=== PATIENT | female | born 1990 | race African-American/Black ===

== ENCOUNTER 2019-10-04 00:01 | Outpatient (CLI) | payer OTHER ==
[2019-10-04 00:47] LABS: APPEARANCE,URINE CLEAR; BILIRUBIN,URINE NEGATIVE (NEGATIVE); COLOR,URINE STRAW; GLUCOSE, URINE NEGATIVE (NEGATIVE); KETONES,URINE NEGATIVE (NEGATIVE); LEUKOCYTE ESTERASE,URINE NEGATIVE (NEGATIVE); NITRITE,URINE NEGATIVE (NEGATIVE); PROTEIN,URINE NEGATIVE (NEGATIVE); URINE SPECIFIC GRAVITY 1.006; UROBILINOGEN,URINE NEGATIVE mg/dL (<2.0)
[2019-10-04 01:18] LABS: URINE AMPHETAMINES SCREEN NEGATIVE; URINE BARBITURATES SCREEN NEGATIVE; URINE BENZODIAZEPINES SCREEN NEGATIVE; URINE COCAINE SCREEN NEGATIVE; URINE MARIJUANA (THC) SCREEN NEGATIVE; URINE METHADONE SCREEN NEGATIVE; URINE PHENCYCLIDINE SCREEN NEGATIVE
[2019-10-04] MEDS ORDERED: HYDROXYZINE PAMOATE 50 MG CAPSULE PO ONE (01:31)
[2019-10-04] MEDS ORDERED: HYDROXYZINE PAMOATE 50 MG CAPSULE ONE (01:36)
--- NOTE | 2019-10-04 01:53 | Non Stress Test Report ---
Non Stress Test Datetime Report Generated by CPN: 10/04/2019 01:53 DEMOGRAPHIC EGA NST: 37.0 INDICATION Indication for Study (NST) Other: 37.0 IUP with CTXs MONITORING Monitor Explained: Monitor Explained; Test Explained; Patient Verbalized Understanding Time on Monitor: 10/04/2019 00:22 Time off Monitor: 10/04/2019 00:41 NST Duration: 19 NST INTERVENTIONS NST Interventions: PO Hydration Physician Notified NST: Dr. Alcala BABY A: [id number] BABY A Movement : Present Accelerations : 15X15 Decelerations : None Variability : Moderate 6-25bpm NST Review: Meets Criteria for Reactive NST NST Review and Verified By : A. [place] RN NST Results: Reactive NST REPORT Report Trigger: Send Report
== END 2019-10-04 01:51 | disposition home or self-care (01) ==
LOC: LC 00:01
PROVIDERS: ATTEND Obstetrics & Gynecology
DX: O47.1 False labor at or after 37 completed weeks of gestation (principal); Z3A.37 37 weeks gestation of pregnancy
CPT/HCPCS: 59025; 80307; 81001

== ENCOUNTER 2019-10-22 03:55 | Inpatient (IN) | payer OTHER ==
[2019-10-22] MEDS ORDERED: OXYTOCIN/0.9 % SODIUM CHLORIDE 30 UNIT/500 ML RTUINJ ONE (03:58)
[2019-10-22] MEDS ORDERED: OXYTOCIN 10 UNIT/ML VIAL ONE (03:58)
[2019-10-22] MEDS ORDERED: LIDOCAINE 1% INJ-PF (10 MG/ML) 30 ML SDV ONE (03:58)
[2019-10-22] MEDS ORDERED: MISOPROSTOL 0.2 MG TABLET ONE (03:58)
--- NOTE | 2019-10-22 04:47 | Admission Physical ---
Datetime Report Generated by CPN: 10/22/2019 04:46 CURRENT ADMISSION Chief Complaint: Other Chief Complaint Other: Delivered at home Admit Impression- Other: delivery Admit Plan: Observation/Evaluation ALLERGIES Medication Allergies: No Medication Allergies: No Known Allergies (10/04/2019) Latex: No Latex Allergies OBSTETRICAL HISTORY EDC: 10/25/2019 00:00 : 3 Para: 2 SEE RECORDS Alcohol: No Marijuana : No Cocaine: No Other Illicit Drugs: No Cigarettes: Never Smoker. [id number] PHYSICAL EXAM General: Normal HEENT: Normal Neurologic: Normal Thyroid: Normal Heart: Normal Lungs: Normal Breast: Deferred Back: Normal Abdomen: Normal Genitourinary Exam: Normal Extremities: Normal DTRs: Normal Pelvic Type: Adequate Vital Signs: Reviewed FETUS A EGA: 39.4 Monitoring: External US Presentation: Vertex Admit Comment: Pt delivered at home. PLANS FOR LABOR AND DELIVERY Labor and Delivery: None Pain Management: None Feeding Preference: Breast Benefit of Breast Feed Discussed: Yes Circumcision: No INFORMED CONSENT Signature: with User ID: [email or web address]
[2019-10-22] MEDS ORDERED: PROMETHAZINE HCL 25 MG SUPP.RECT PR PRN (04:51)
[2019-10-22] MEDS ORDERED: PROMETHAZINE HCL 25 MG TABLET PO PRN (04:51)
[2019-10-22] MEDS ORDERED: NA PHOS,M-B/NA PHOS,DI-BA (ADULT) 133 ML ENEMA PR PRN (04:51)
[2019-10-22] MEDS ORDERED: DIPH/PERTUSS(ACELL)/TETANUS VAC/PF 0.5 ML SYR (>=10YO) IM PRN (04:51)
[2019-10-22] MEDS ORDERED: PSEUDOEPHEDRINE HCL 30 MG TABLET PO PRN (04:51)
[2019-10-22] MEDS ORDERED: MEASLES,MUMPS&RUBELLA VACC/PF 0.5 ML VIAL SUBCUT PRN (04:51)
[2019-10-22] MEDS ORDERED: ACETAMINOPHEN 650 MG SUPP.RECT PR PRN (04:51)
[2019-10-22] MEDS ORDERED: DIBUCAINE 1% OINTMENT 28 GM TP PRN (04:51)
[2019-10-22] MEDS ORDERED: PROMETHAZINE HCL INJ 25 MG/1 ML VIAL IV PRN (04:51)
[2019-10-22] MEDS ORDERED: ZOLPIDEM TARTRATE 5 MG TABLET PO PRN (04:51)
[2019-10-22] MEDS ORDERED: DIPHENHYDRAMINE HCL 25 MG CAPSULE PO PRN (04:51)
[2019-10-22] MEDS ORDERED: GLYCERIN/WITCH HAZEL LEAF 1 EACH MED..WIPE TP PRN (04:51)
[2019-10-22] MEDS ORDERED: ACETAMINOPHEN WITH CODEINE #3 TABLET PO PRN ×2 (04:51)
[2019-10-22] MEDS ORDERED: BENZOCAINE/MENTHOL AEROSOL SPRAY 56 ML TOP PRN (04:51)
[2019-10-22] MEDS ORDERED: MAGNESIUM HYDROXIDE SUSP 30 ML UDCUP PO PRN (04:51)
--- NOTE | 2019-10-22 05:27 | Delivery Summary ---
Del Sum A-C Datetime Report Generated by CPN: 10/22/2019 05:27 DELIVERY PERSONNEL DELIVERY PERSONNEL: [id number] Delivery Doctor:: Gris Perrin MD Labor and Delivery Nurse:: Rose Arriola RNpulp mixer Nurse:: Neeru Wade RN Nursery Nurse:: Cadence Bains RN MATERNAL INFORMATION Delivery Anesthesia: None Medications After Delivery: Pitocin 10 Units IM Estimated Blood Loss (ml): 250 Maternal Complications: Precipitous Labor (<3hrs); Other Complication Details: Delivery at home LABOR SUMMARY EDC: 10/25/2019 00:00 No. Babies in Womb: 1 Attempted: No Labor Anesthesia: None LABOR INFORMATION Reason for Induction: Not Applicable Oxytocin: N/A Group B Beta Strep: positive Antibiotics # of Doses: 0 Steroids Given: None Reason Steroids Not Administered: Not Applicable MEMBRANES Membranes Rupture Method: Spontaneous Amniotic Fluid Color: Clear STAGES OF LABOR Stage 3 hr: 0 Stage 3 min: 38 VAGINAL DELIVERY Episiotomy: None Laceration #1: Perineal Laceration Extension #1: First Degree Laceration #2: None Laceration Extension #2: N/A Laceration #3: None Laceration Extension #3: N/A Laceration Repair: Yes Laceration Repair Note: Repair of small perineal laceration with one 3-0 chromic suture Sponge Count Correct: Vaginal Sweep Performed CSECTION DELIVERY Primary Indication: N/A Secondary Indication: N/A CSection Incidence: N/A Labor: N/A Elective: N/A CSection Incision: N/A BABY A INFORMATION Infant Delivery Date/Time: 10/22/2019 03:59 Method of Delivery: Vaginal Nurse Controlled Delivery: No Born in Route : Yes : N/A Forceps: N/A Vacuum Extraction: N/A Shoulder Dystocia : No PRESENTATION/POSITION BABY A Presentation: Cephalic Cephalic Presentation: Vertex PLACENTA INFORMATION BABY A Placenta Delivery Time : 10/22/2019 04:37 Placenta Method of Delivery: Spontaneous Placenta Status: Delivered INFANT INFORMATION BABY A Gestational Age at Delivery: 39.4 Gestational Status: Full Term- 39- 40.6 Weeks Infant Outcome : Liveborn Condition : Stable Infant Sex: Male IDENTIFICATION BABY A Verification Date/Time: 10/22/2019 04:13 ID Band Number: [id number] Mother's Name Verified: Yes Infant RN Verifying Infant: A. Flory RN Additional Verifying Personnel: Renetta Iyer RN WEIGHT/LENGTH BABY A Infant Birthweight (gm): 3506 Infant Weight (lb): 7 Weight (oz): 12 Infant Length (in): 19.50 Length (cm): 49.53 CORD INFORMATION BABY A No. Cord Vessels: 3 Cord Blood Taken: Yes-For Eval (Mom's Blood Type - or O+) ASSESSMENT BABY A Infant Complications: None Physical Findings at Delivery: Within Normal Limits Skin to Skin: Yes Transferred To: Remains with Mother BABY B INFORMATION : N/A SIGNATURES Signature: with User ID: [email or web address]
[2019-10-22 05:53] LABS: ABSOLUTE LYMPHOCYTES (AUTO) 1.2 10^3/uL (0.5-4.7); ABSOLUTE MONOCYTES (AUTO) 0.5 10^3/uL (0.1-1.4); ABSOLUTE NEUT (AUTO) 6.8 10^3/uL (1.7-8.2); BASOPHILS % (AUTO) 0.1 % (0-2); EOSINOPHILS % (AUTO) 0.6 % (0-6); HEMATOCRIT 39.1 % (36.0-47.0); HEMOGLOBIN 12.7 g/dL (12.0-15.5); LYMPHOCYTES % (AUTO) 13.7 % (13-45); MEAN CORPUSCULAR HEMOGLOBIN 26.5 pg (27.0-33.4); MEAN CORPUSCULAR HGB CONC 32.5 g/dL (32.0-36.0); MEAN CORPUSCULAR VOLUME 82 fl (80-97); MONOCYTES % (AUTO) 5.5 % (3-13); PLATELET COUNT 189 10^3/uL (150-450); RED CELL DISTRIBUTION WIDTH 16.8 % (11.5-14.0); SEGMENTED NEUTROPHILS % (AUTO) 80.1 % (42-78); TOTAL CELLS COUNTED % (AUTO) 100 %; WHITE BLOOD COUNT 8.5 10^3/uL (4.0-10.5)
[2019-10-22 06:27] LABS: APPEARANCE,URINE SLIGHTLY-CLOUDY; BILIRUBIN,URINE NEGATIVE (NEGATIVE); COLOR,URINE YELLOW; GLUCOSE, URINE NEGATIVE (NEGATIVE); KETONES,URINE NEGATIVE (NEGATIVE); LEUKOCYTE ESTERASE,URINE NEGATIVE (NEGATIVE); NITRITE,URINE NEGATIVE (NEGATIVE); PROTEIN,URINE 30 mg/dL (NEGATIVE); URINE SPECIFIC GRAVITY 1.008; UROBILINOGEN,URINE NEGATIVE mg/dL (<2.0)
[2019-10-22 06:44] LABS: URINE AMPHETAMINES SCREEN NEGATIVE; URINE BARBITURATES SCREEN NEGATIVE; URINE BENZODIAZEPINES SCREEN NEGATIVE; URINE COCAINE SCREEN NEGATIVE; URINE MARIJUANA (THC) SCREEN NEGATIVE; URINE METHADONE SCREEN NEGATIVE; URINE PHENCYCLIDINE SCREEN NEGATIVE
[2019-10-22] MEDS: IBUPROFEN 800 MG TABLET PO SCH ×3 (06:54→22:01)
[2019-10-22] MEDS: FAMOTIDINE 20 MG TABLET PO SCH ×2 (09:58→22:01)
[2019-10-22] MEDS: DOCUSATE SODIUM 100 MG CAPSULE PO SCH ×2 (09:59→17:18)
[2019-10-22] MEDS: FERROUS SULFATE 325 MG TABLET PO SCH ×2 (09:59→17:18)
[2019-10-22] MEDS: SENNOSIDES/DOCUSATE 8.6-50 MG 1 EACH TABLET PO SCH (09:59)
[2019-10-22] MEDS: PRENATAL VITAMIN W DHA CAPSULE PO SCH (09:59)
[2019-10-23] MEDS: IBUPROFEN 800 MG TABLET PO SCH ×3 (05:44→21:50)
[2019-10-23 07:25] LABS: HEMATOCRIT 36.4 % (36.0-47.0); HEMOGLOBIN 12.1 g/dL (12.0-15.5); MEAN CORPUSCULAR HEMOGLOBIN 27.2 pg (27.0-33.4); MEAN CORPUSCULAR HGB CONC 33.3 g/dL (32.0-36.0); MEAN CORPUSCULAR VOLUME 82 fl (80-97); PLATELET COUNT 188 10^3/uL (150-450); RED BLOOD COUNT 4.47 10^6/uL (3.72-5.28); RED CELL DISTRIBUTION WIDTH 16.6 % (11.5-14.0); WHITE BLOOD COUNT 10.6 10^3/uL (4.0-10.5)
--- NOTE | 2019-10-23 09:13 | PDOC PROGRESS REPORT ---
Subjective-OB Progress Note for:: 10/23/19 Subjective: Pt doing well, bonding with baby. Reports light bleeding, reg diet and voiding w/o difficulty. No concerns. Plan DC tomorrow Physical Exam (OB) Vital Signs: Temp Pulse Resp BP Pulse Ox 98.0 F 59 L 18 105/57 L 99 10/23/19 07:24 10/23/19 07:24 10/23/19 07:24 10/23/19 07:24 10/23/19 07:24 Intake & Output 10/22/19 10/23/19 10/24/19 06:59 06:59 06:59 Output Total 800 Balance -800 - PIH/Pre-Eclampsia DTR's: 1 + Clonus: Negative Headache: Absent - Lochia Lochia Amount: Scant < 10 ml Lochia Color: Rubra/Red - Abdomen Description: Soft, Round Hernia Present: No Fundal Description: Firm, Midline Fundal Height: u/u - u/2 Objective-Diagnostic Laboratory: 10/23/19 06:25 10/23/19 06:25 WBC 10.6 H RBC 4.47 Hgb 12.1 Hct 36.4 MCV 82 MCH 27.2 MCHC 33.3 RDW 16.6 H Plt Count 188 Assessment and Plan(PN) - Assessment and Plan (1) (normal spontaneous vaginal delivery) Is this a current diagnosis for this admission?: Yes (2) Encounter for care after unplanned out of hospital delivery Is this a current diagnosis for this admission?: Yes (3) Normal course Is this a current diagnosis for this admission?: Yes - Time Spent with Patient Time with patient: Less than 15 minutes Medications reviewed and adjusted accordingly: Yes - Disposition Anticipated Discharge Disposition: Home, Self Care Anticipated Discharge: within 24 hours
[2019-10-23] MEDS: SENNOSIDES/DOCUSATE 8.6-50 MG 1 EACH TABLET PO SCH (09:33)
[2019-10-23] MEDS: PRENATAL VITAMIN W DHA CAPSULE PO SCH (09:33)
[2019-10-23] MEDS: FERROUS SULFATE 325 MG TABLET PO SCH ×2 (09:33→17:39)
[2019-10-23] MEDS: DOCUSATE SODIUM 100 MG CAPSULE PO SCH ×2 (09:33→17:39)
[2019-10-23] MEDS: FAMOTIDINE 20 MG TABLET PO SCH ×2 (09:33→21:50)
[2019-10-23 13:16] LABS: PATH REVIEW PATHOLOGIST REVIEWED
[2019-10-24] MEDS: IBUPROFEN 800 MG TABLET PO SCH (05:47)
[2019-10-24 07:55] LABS: HEMATOCRIT 39.6 % (36.0-47.0); HEMOGLOBIN 12.8 g/dL (12.0-15.5); MEAN CORPUSCULAR HEMOGLOBIN 26.4 pg (27.0-33.4); MEAN CORPUSCULAR HGB CONC 32.3 g/dL (32.0-36.0); MEAN CORPUSCULAR VOLUME 82 fl (80-97); PLATELET COUNT 197 10^3/uL (150-450); RED BLOOD COUNT 4.85 10^6/uL (3.72-5.28); RED CELL DISTRIBUTION WIDTH 17.7 % (11.5-14.0); WHITE BLOOD COUNT 8.1 10^3/uL (4.0-10.5)
[2019-10-24] MEDS: PRENATAL VITAMIN W DHA CAPSULE PO SCH (09:52)
[2019-10-24] MEDS: SENNOSIDES/DOCUSATE 8.6-50 MG 1 EACH TABLET PO SCH (09:52)
[2019-10-24] MEDS: DOCUSATE SODIUM 100 MG CAPSULE PO SCH (09:52)
[2019-10-24] MEDS: FERROUS SULFATE 325 MG TABLET PO SCH (09:52)
[2019-10-24] MEDS: FAMOTIDINE 20 MG TABLET PO SCH (09:52)
[2019-10-24 11:54] VITALS: BP 101/54
--- NOTE | 2019-10-24 12:25 | PDOC DISCHARGE SUMMARY ---
Impression - Admit/DC Date/PCP Admission Date/Primary Care Provider: 10/22/19 03:55 PORTER MARCELINO MD Discharge Date: 10/24/19 - Discharge Diagnosis (1) Laceration of perineum during delivery, Is this a current diagnosis for this admission?: Yes (2) Encounter for care after unplanned out of hospital delivery Is this a current diagnosis for this admission?: Yes (3) (normal spontaneous vaginal delivery) Is this a current diagnosis for this admission?: Yes (4) Normal course Is this a current diagnosis for this admission?: Yes - Assessment Summary: 29yo G3 now P3 s/p ppd 2. stable and ready for discharge no concerns today understands warning s/s - Additional Information Resuscitation Status: Full Code Discharge Diet: As Tolerated, Regular Discharge Activity: Activity As Tolerated, Balance Activity w/Rest, No Lifting Over 10 Pounds, Pelvic Rest, No tub bath, Walk Frequently Referrals: PORTER MARCELINO MD [Primary Care Provider] - (Call [facility] to make 4 week follow up appt) Prescriptions: Ibuprofen [Motrin 800 mg Tablet] 800 mg PO Q8H PRN #20 tab PRN Reason: Abdominal Cramping Home Medications: Ibuprofen [Motrin 800 mg Tablet] 800 mg PO Q8H PRN #20 tab 10/24/19 Results Laboratory Results: WBC 8.1 10^3/uL (4.0-10.5) 10/24/19 07:02 RBC 4.85 10^6/uL (3.72-5.28) 10/24/19 07:02 Hgb 12.8 g/dL (12.0-15.5) 10/24/19 07:02 Hct 39.6 % (36.0-47.0) 10/24/19 07:02 MCV 82 fl (80-97) 10/24/19 07:02 MCH 26.4 pg (27.0-33.4) L 10/24/19 07:02 MCHC 32.3 g/dL (32.0-36.0) 10/24/19 07:02 RDW 17.7 % (11.5-14.0) H 10/24/19 07:02 Plt Count 197 10^3/uL (150-450) 10/24/19 07:02 Lymph % (Auto) 13.7 % (13-45) 10/22/19 05:36 Casey % (Auto) 5.5 % (3-13) 10/22/19 05:36 Eos % (Auto) 0.6 % (0-6) 10/22/19 05:36 Baso % (Auto) 0.1 % (0-2) 10/22/19 05:36 Absolute Neuts (auto) 6.8 10^3/uL (1.7-8.2) 10/22/19 05:36 Absolute Lymphs (auto) 1.2 10^3/uL (0.5-4.7) 10/22/19 05:36 Absolute Monos (auto) 0.5 10^3/uL (0.1-1.4) 10/22/19 05:36 Absolute Eos (auto) 0.0 10^3/uL (0.0-0.6) 10/22/19 05:36 Absolute Basos (auto) 0.0 10^3/uL (0.0-0.2) 10/22/19 05:36 Seg Neutrophils % 80.1 % (42-78) H 10/22/19 05:36 Urine Color YELLOW 10/22/19 06:07 Urine Appearance SLIGHTLY-CLOUDY 10/22/19 06:07 Urine pH 6.0 (5.0-9.0) 10/22/19 06:07 Ur Specific Parker 1.008 10/22/19 06:07 Urine Protein 30 mg/dL (NEGATIVE) H 10/22/19 06:07 Urine Glucose (UA) NEGATIVE mg/dL (NEGATIVE) 10/22/19 06:07 Urine Ketones NEGATIVE mg/dL (NEGATIVE) 10/22/19 06:07 Urine Blood LARGE (NEGATIVE) H 10/22/19 06:07 Urine Nitrite NEGATIVE (NEGATIVE) 10/22/19 06:07 Urine Bilirubin NEGATIVE (NEGATIVE) 10/22/19 06:07 Urine Urobilinogen NEGATIVE mg/dL (<2.0) 10/22/19 06:07 Ur Leukocyte Esterase NEGATIVE (NEGATIVE) 10/22/19 06:07 Urine Ascorbic Acid NEGATIVE (NEGATIVE) 10/22/19 06:07 Urine Opiates Screen NEGATIVE 10/22/19 06:07 Urine Methadone Screen NEGATIVE 10/22/19 06:07 Ur Barbiturates Screen NEGATIVE 10/22/19 06:07 Ur Phencyclidine Scrn NEGATIVE 10/22/19 06:07 Ur Amphetamines Screen NEGATIVE 10/22/19 06:07 U Benzodiazepines Scrn NEGATIVE 10/22/19 06:07 Urine Cocaine Screen NEGATIVE 10/22/19 06:07 U Marijuana (THC) Screen NEGATIVE 10/22/19 06:07 RPR NONREACTIVE (NONREACTIVE) 10/22/19 05:36 Slides for Path Review PATHOLOGIST REVIEWED 10/22/19 05:36 Blood Type O POSITIVE 10/22/19 05:36 Antibody Screen NEGATIVE 10/22/19 05:36
== END 2019-10-24 13:20 | disposition home or self-care (01) | DRG 776 ==
LOC: LR 03:55 → 2S 06:15
PROVIDERS: ADMIT Obstetrics & Gynecology; ATTEND Obstetrics & Gynecology
PROC: 0HQ9XZZ Repair Perineum Skin, External Approach (ICD-10-PCS; principal; 2019-10-22)
DX: O70.0 First degree perineal laceration during delivery (principal); Z3A.39 39 weeks gestation of pregnancy
CPT/HCPCS: 36415; 59414; 80307; 81005; 85025; 85027; 86592; 86850; 86900; 86901; J2590; J3490